=== PATIENT | male | born 1960 | race Caucasian/White ===

== ENCOUNTER 2020-08-26 14:23 | Emergency (ER) | payer BC, SELFPAY ==
[2020-08-26 14:30] VITALS: BP 145/93; PULSE 83; RESP 18; TEMP 36.9; O2SAT 96
--- NOTE | 2020-08-26 15:11 | ED.UPPEXIN ---
HPI - Extremity Injury (Upper) General Chief Complaint: Extremity Injury, Upper Stated Complaint: left wrist lac Time Seen by Provider: 08/26/20 15:12 Source: patient, RN notes reviewed and old records reviewed Mode of arrival: ambulatory Limitations: no limitations History of Present Illness HPI narrative: 60 year old male presents to [facility] care with complaints of laceration to his left distal inner forearm which happened within past hour prior to arrival, he has pressure dressing to wound site with no acute active bleeding noted. 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 Patient denies any acute pain to site, states aches a little rates pain /. He states his tetanus shot is up to date. MD complaint: injury to: left and forearm (distal inner) Onset (ago): hour(s) (within past hour prior to arrival) Other Extremity Injury: Left: forearm (inner) Other injuries: none Handedness: left Place: work Severity: mild Severity scale (1-10): 1 Exacerbating factors: movement of extremity Context: laceration Associated symptoms: denies other symptoms Treatments prior to arrival: bandage Related Data Home Medications Medication Instructions Recorded Confirmed omeprazole 20 mg PO DAILY 08/26/20 08/26/20 Allergies Allergy/AdvReac Type Severity Reaction Status Date / Time latex Allergy Mild Rash Verified 08/26/20 14:50 Review of Systems Review of Systems: Narrative: CONSTITUTIONAL: Denies fever, chills, or sweats. EYES: Denies visual changes, redness, or discharge. ENT: Denies rhinorrhea, congestion, sore throat, or otalgia. CARDIOVASCULAR: Denies chest pain, palpitations, or edema. RESPIRATORY: Denies cough or dyspnea. GASTROINTESTINAL: Denies abdominal pain, nausea, vomiting, or diarrhea. GENITOURINARY: Denies dysuria or hematuria. SKIN: Denies rash or itching.1.5cm linear laceration to left distal inner forearm, no acute active bleeding MUSCULOSKELETAL: Denies back pain, joint pain, or myalgia. NEUROLOGIC: Denies headache, numbness, or weakness. PSYCHIATRIC: Denies anxiety or depression. All systems reviewed & are unremarkable except as noted in HPI and below PMFSH Past Medical History Medical History (Updated 08/27/20 @ 15:58 by Jaylin Orosco NP) Fracture of clavicle Fracture, ribs GERD (gastroesophageal reflux disease) Shoulder fracture, right pin insertion Skull fracture Surgical History Surgical History (Updated 08/27/20 @ 15:55 by Jaylin Orosco NP) H/O splenectomy Family History Family History (Updated 08/27/20 @ 16:12 by Jaylin Orosco NP) Grandparent Heart disease Father Heart disease Mother Dementia Social History Social History (Updated 08/27/20 @ 16:13 by Jaylin Orosco NP) Smoking status: Current every day smoker Tobacco type: cigars Additional smoking assessment comments: quit cigarettes 2013 smokes 1 cigar daily Alcohol intake: former Substance use: never Living arrangements: with family Gender identity (if verbalized by the patient): Male Comments At time of signature, agree with nursing past medical, surgical, social and family history. There is no relevant family history pertinent to the presenting complaint Exam Narrative: Exam Narrative: GENERAL: Well-appearing, well-nourished, and in no acute distress. HEAD: Normocephalic, atraumatic. EYES: PERRLA and EOMI. ENT: Nares clear, no rhinorrhea or epistaxis. Mucous membranes moist. NECK: Supple. CHEST: Clear to auscultation. No respiratory distress.SAO2 96% on room air HEART: Regular rate and rhythm. No murmur heard. Normal peripheral pulses. ABDOMEN: Soft, nontender, nondistended, normal active bowel sounds. EXTREMITIES: Normal range of motion. No edema. SKIN: Warm, dry, no rash.1.5cm linear laceration to inner left distal forearm, no debris noted or any active bleeding, full ROM of left arm and hand, no t
--- NOTE | 2020-08-26 15:43 | ED.UPPEXIN ---
HPI - Extremity Injury (Upper) General Chief Complaint: Extremity Injury, Upper Stated Complaint: left wrist lac Time Seen by Provider: 08/26/20 15:12 Source: patient, RN notes reviewed and old records reviewed Mode of arrival: ambulatory Limitations: no limitations History of Present Illness HPI narrative: 60 year old male presents to [facility] care with complaints of laceration to his left distal inner forearm which happened within past hour prior to arrival, he has pressure dressing to wound site with no acute active bleeding noted. 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 Patient denies any acute pain to site, states aches a little rates pain 02/17. He states his tetanus shot is up to date. MD complaint: injury to: left and forearm Onset (ago): hour(s) (1 [employer]GER) Other injuries: none Handedness: left Place: work Severity: mild Severity scale (1-10): 1 Relieving factors: none Exacerbating factors: movement of extremity Context: laceration Associated symptoms: denies other symptoms Treatments prior to arrival: bandage Related Data Home Medications Medication Instructions Recorded Confirmed omeprazole 20 mg PO DAILY 08/26/20 08/26/20 Allergies Allergy/AdvReac Type Severity Reaction Status Date / Time latex Allergy Mild Rash Verified 08/26/20 14:50 [facility] Past Medical History Medical History (Updated 08/27/20 @ 15:58 by Jaylin Orosco NP) Fracture of clavicle Fracture, ribs GERD (gastroesophageal reflux disease) Shoulder fracture, right pin insertion Skull fracture Surgical History Surgical History (Updated 08/27/20 @ 15:55 by Jaylin Orosco NP) H/O splenectomy Course Vital Signs Vital signs: Vital Signs Temperature 36.9 C 08/26/20 14:30 Pulse Rate 83 08/26/20 14:30 Respiratory Rate 18 08/26/20 14:30 Blood Pressure 145/93 H 08/26/20 14:30 Pulse Oximetry 96 08/26/20 14:30 Temperature 36.9 C 08/26/20 14:30 Pulse Rate 83 08/26/20 14:30 Respiratory Rate 18 08/26/20 14:30 Blood Pressure 145/93 H 08/26/20 14:30 Pulse Oximetry 96 08/26/20 14:30 Procedures Laceration left inner forearm distal: Date: 08/26/20 Site: upper extremity Side (If applicable): left Size (cm): 1.5 Description: linear Depth: simple, single layer Amount of anesthesia used (mL): 5 Pre-repair: wound explored and irrigated extensively ====== Skin Level ====== Size (cm): 5-0 Number of sutures: 6 Technique: simple, interrupted ====== Subcutaneous Layer ====== ====== Muscle Layer ====== ====== Tendon Layer ====== MDM - Extremity Injury (Upper) Differential Diagnosis Differential diagnosis: Likely other (Laceration of left inner forearm, pain left inner forearm, injury left inner forearm, repair of laceration left inner forearm) Medical Records Attestation: I reviewed the patient's medical records. Critical Care Time Critical Care Time Critical Care Time: No Discharge Plan Discharge Clinical Impression: Laceration of forearm, left Qualifiers: Encounter type: initial encounter Qualified Code(s): S51.812A - Laceration without foreign body of left forearm, initial encounter Patient Disposition: Home, Self-Care Condition: Stable Instructions: Antibiotic Form, Laceration (ED) Additional Instructions: Keep the area clean and dry No continuous water contact like dishes or swimming You may bathe and wash you hair caution with hair products or lotions Antibiotic ointment to the area 2 times a day dressing of choice watch for infection--redness, swelling, drainage follow up with PCP for suture/staple in removal 10 days recheck with PCP if further concerns or problems If your symptoms persist, change or worsen significantly before you can contact your personal physician then please, without delay,
== END 2020-08-26 15:55 | disposition home or self-care (01) ==
PROVIDERS: Emergency Provider Registered Nurse
DX: S51.812A Laceration without foreign body of left forearm, initial encounter (principal); W25.XXXA Contact with sharp glass, initial encounter; F17.229 Nicotine dependence, chewing tobacco, with unspecified nicotine-induced disorders; F17.290 Nicotine dependence, other tobacco product, uncomplicated; K21.9 Gastro-esophageal reflux disease without esophagitis
CPT/HCPCS: 12001; 99213; G0463

== ENCOUNTER 2020-09-09 15:46 | Emergency (ER) | payer BC, SELFPAY ==
[2020-09-09 15:56] VITALS: BP 144/91; PULSE 62; RESP 20; TEMP 36.9; O2SAT 99
--- NOTE | 2020-09-09 16:24 | ED.SKABFB ---
HPI - Skin/Abscess/Foreign Bdy General Chief complaint: Skin/Abscess/Foreign Body Stated complaint: remove stitches Time Seen by Provider: 09/09/20 16:26 Source: patient History of Present Illness HPI narrative: Patient here for suture removal to his left forearm. Patient had stitches placed here August [id number]. Edges well approximated no redness no drainage no concern for infection Related Data Home Medications Medication Instructions Recorded Confirmed omeprazole 20 mg PO DAILY 08/26/20 09/09/20 Allergies Allergy/AdvReac Type Severity Reaction Status Date / Time latex Allergy Mild Rash Verified 09/09/20 15:57 Review of Systems Review of Systems: Right CONSTITUTIONAL: Denies fever, chills, or sweats. EYES: Denies visual changes, redness, or discharge. ENT: Denies rhinorrhea, congestion, sore throat, or otalgia. CARDIOVASCULAR: Denies chest pain, palpitations, or edema. RESPIRATORY: Denies cough or dyspnea. GASTROINTESTINAL: Denies abdominal pain, nausea, vomiting, or diarrhea. GENITOURINARY: Denies dysuria or hematuria. SKIN: Denies rash or itching. MUSCULOSKELETAL: Denies back pain, joint pain, or myalgia. NEUROLOGIC: Denies headache, numbness, or weakness. PSYCHIATRIC: Denies anxiety or depression. [facility] Past Medical History Medical History (Updated 09/09/20 @ 16:26 by SHANICE Patel) Fracture of clavicle Fracture, ribs GERD (gastroesophageal reflux disease) Shoulder fracture, right pin insertion Skull fracture Surgical History Surgical History (Updated 08/27/20 @ 15:55 by Jaylin Orosco NP) H/O splenectomy Family History Family History (Updated 08/27/20 @ 16:12 by Jaylin Orosco NP) Grandparent Heart disease Father Heart disease Mother Dementia Social History Social History (Updated 08/27/20 @ 16:13 by Jaylin Orosco NP) Smoking status: Current every day smoker Tobacco type: cigars Additional smoking assessment comments: quit cigarettes 2013 smokes 1 cigar daily Alcohol intake: former Substance use: never Gender identity (if verbalized by the patient): Male Comments At time of signature, agree with nursing past medical, surgical, social and family history. There is no relevant family history pertinent to the presenting complaint Exam Narrative: GENERAL: Well-appearing, well-nourished, and in no acute distress. HEAD: Normocephalic, atraumatic. EYES: PERRLA and EOMI. ENT: Nares clear, no rhinorrhea or epistaxis. Mucous membranes moist. NECK: Supple. CHEST: Clear to auscultation. No respiratory distress. HEART: Regular rate and rhythm. No murmur heard. Normal peripheral pulses. ABDOMEN: Soft, nontender, nondistended, normal active bowel sounds. EXTREMITIES: Normal range of motion. No edema. SKIN: Warm, dry, no rash. NEURO: No focal deficits. Alert and oriented x3. Reji Coma Scale Eye Opening: Spontaneous 4 [place] Coma Scale Motor: Obeys Commands 6 Reji Coma Scale Verbal: Oriented 5 [place] Coma Scale Total 15 Clear liquids for the next 8-10 hours, then advance to a bland diet as tolerated A bland diet can consist of--BRAT diet which is bananas, rice, applesauce, and toast Avoid fried, greasy, fatty, fried foods Avoid caffeine, nicotine, and alcohol Return to your regular diet in the next 3-4 days Medication as directed for nausea and vomiting -If you have any worsening of symptoms or any other concerns please go to the ED immediately. Course Vital Signs Vital signs: Vital Signs Temperature 36.9 C 09/09/20 15:56 Pulse Rate 62 09/09/20 15:56 Respiratory Rate 20 09/09/20 15:56 Blood Pressure 144/91 H 09/09/20 15:56 Pulse Oximetry 99 09/09/20 15:56 Temperature 36.9 C 09/09/20 15:56 Pulse Rate 62 09/09/20 15:56 Respiratory Rate 20 09/09/20 15:56 Blood Pressure 144/91 H 09/09/20 15:56 Pulse Oximetry 99 09/09/20 15:56 Please AYAN schedule a followup visit with your personal physician f
== END 2020-09-09 16:30 | disposition home or self-care (01) ==
PROVIDERS: Emergency Provider Nurse Practitioner Family
DX: S51.812D Laceration without foreign body of left forearm, subsequent encounter (principal); X58.XXXD Exposure to other specified factors, subsequent encounter; K21.9 Gastro-esophageal reflux disease without esophagitis; F17.291 Nicotine dependence, other tobacco product, in remission
CPT/HCPCS: 99211; G0463